=== PATIENT | male | born 1955 | race African-American/Black ===

== ENCOUNTER 2017-01-10 11:57 | Emergency (ER) | payer OTHER ==
[~2017-01-10] VITALS: Ht 188 cm; Wt 81.6 kg
[~2017-01-10 11:57] MED LIST: CEPHALEXIN500 MG ORAL; CLARITIN-D 121 EAC1 ORAL; HM DOUBLE ANT28.4 G1 TP; RANITIDINE HCL150 MG ORAL; TYLENOL EXTRA500 MG ORAL
[2017-01-10 12:42] VITALS: BP 180/90
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
== END 2017-01-10 12:44 | disposition home or self-care (01) ==
LOC: EDBD 11:57 → EMR 12:17
DX: R06.00 Dyspnea, unspecified (principal); I10 Essential (primary) hypertension; I48.91 Unspecified atrial fibrillation
CPT/HCPCS: 99282